=== PATIENT | male | born 1935 | race Caucasian/White ===

== ENCOUNTER 2016-06-03 20:56 | Emergency (ER) | payer OTHER ==
--- NOTE | ~2016-06-03 | EKG ---
PATIENT: JOE FERRARI UNIT #: [id number] Ventricular Rate: 71 BPM Atrial Rate: 71 BPM P-R Interval: 194 ms QRS Duration: 86 ms Q-T Interval: 390 ms QTC Calculation(Bezet): 423 ms P [place]: 41 degrees Calculated R [place]: 50 degrees Calculated T [place]: 34 degrees Diagnosis Line: Normal sinus rhythm Diagnosis Line: Normal ECG Diagnosis Line: When compared with ECG of 23-OCT-2014 14:21, Diagnosis Line: Premature atrial complexes are no longer Present Diagnosis Line: Confirmed by DARLIN HERNANDEZ MD ([id number]) on 06/05/2016 Diagnosis Line: 12:02:38 PM Diagnosis Line: Also confirmed by DARLIN HERNANDEZ MD ([id number]) on Diagnosis Line: 06/05/2016 12:02:55 PM INTERPRETING MD: MARY LORA
--- NOTE | ~2016-06-03 | EKG ---
PATIENT: JOE FERRARI UNIT #: [id number] Ventricular Rate: 71 BPM Atrial Rate: 71 BPM P-R Interval: 194 ms QRS Duration: 86 ms Q-T Interval: 390 ms QTC Calculation(Bezet): 423 ms P [place]: 41 degrees Calculated R [place]: 50 degrees Calculated T [place]: 34 degrees Diagnosis Line: Normal sinus rhythm Diagnosis Line: Normal ECG Diagnosis Line: When compared with ECG of 23-OCT-2014 14:21, Diagnosis Line: Premature atrial complexes are no longer Present Diagnosis Line: Confirmed by DARLIN HERNANDEZ MD ([id number]) on 06/05/2016 Diagnosis Line: 12:02:38 PM INTERPRETING MD: MARY LORA
[~2016-06-03 20:56] MED LIST: AMOXICILLIN PO; APRESOLINE; ATENOLOL PO; ATENOLOL-CHLORT1 TA2; ATENOLOL-CHLORT1 TA3 PO; B-COMPLEX PO; CADUET 10 MG/201 TAB PO; CARAFATE1 G PO; CATAPRES0.1 MG PO; CENTRUM SILVER PO; CLONIDINE PO; GARLIC PO; HCTZ PO; HYDRALAZINE HCL50 MG PO; HYTRIN PO; INDOMETHACIN50 MG PO; KROGER PHARMACY; LISINOPRIL20 MG PO; MAGNESIUM PO; NORVASC10 MG PO; OMEGA 3 FISH OI1 CAP PO; PLAVIX PO; PRAVACHOL80 MG PO; PROBIOTIC; PROTONIX PO; TEKTURNA; TEKTURNA300 MG PO; TENORETIC 50 TA1 TAB PO; TIMOPTIC 0.25% O5 M1 OD; TIMOPTIC2.5 ML; TYLENOL #3 PO; VIT E PO; VITAMIN C PO; WATER PILL?; WELCHOL625 MG PO; ZESTORETIC 20/21 TAB PO; ZINC SULFATE PO; ZINC50 M1 PO; ZYLOPRIM PO
[2016-06-03 21:11] LABS: BASOPHIL# 0.1 X10e3 (0-0.3); BASOPHIL% 0.9 % (0-2.5); EOSINOPHIL# 0.4 X10e3 (0-0.7); HEMATOCRIT 30.3 % (38.0-50.0); LYMPHOCYTE# 1.8 X10e3 (1.0-3.5); LYMPHOCYTE% 28.6 % (17.0-45.0); MEAN CELL VOLUME 92.8 FL (83-96); MEAN CORPUSCULAR HEMOGLOBIN 30.8 PG (28-34); MEAN CORPUSCULAR HGB CONC 33.1 g/dL (30-36); MEAN PLATELET VOLUME 8.4 FL (6.5-11.5); MONOCYTE# 0.8 X10e3 (0-1.0); MONOCYTE% 13.1 % (3.0-12.0); NEUTROPHIL# 3.2 X10e3 (1.5-7.1); NEUTROPHIL% 51.4 % (40-75); PLATELET COUNT 148 X10e3 (140-420); RED BLOOD COUNT 3.26 X10e (3.90-5.60); RED CELL DISTRIBUTION WIDTH 14.4 % (11.0-15.5); WHITE BLOOD COUNT 6.2 X10e3 (4.0-10.5)
[2016-06-03 21:13] LABS: DIFF IND NO
[2016-06-03 21:26] LABS: CALCIUM SERUM 8.5 mg/dL (8.4-10.2); CREATININE SERUM 2.7 mg/dL (0.6-1.4); GLOM FILT RATE Estimated 21.3 mL/min (>60); POTASSIUM 4.7 mmol/L (3.5-5.1)
[2016-06-03 21:26] LABS: POC - CKMB 2.9 ng/mL (0.0-7.9)
[2016-06-03 21:27] LABS: POC - TROPONIN <0.05 ng/mL (<=0.05)
[2016-06-03 21:46] LABS: URINE SOURCE CLEAN CATCH
[2016-06-03 21:48] LABS: URINE APPEARANCE CLEAR; URINE BILIRUBIN NEG (NEG); URINE BLOOD NEG (NEG); URINE COLOR YELLOW; URINE GLUCOSE NEG (NORM); URINE KETONE NEG (NEG); URINE LEUKOCYTE ESTERASE NEG (NEG); URINE NITRATE NEG (NEG); URINE PH 5.5 (5-8); URINE PROTEIN 2+ (NEG); URINE UROBILINOGEN 0.2 MG/DL (NORM)
[2016-06-03 21:49] LABS: MICRO INDICATED? NO
== END 2016-06-03 22:44 | disposition home or self-care (01) ==
LOC: SED 20:56
PROVIDERS: Emergency Medicine
DX: I12.9 Hypertensive chronic kidney disease with stage 1 through stage 4 chronic kidney disease, or unspecified chronic kidney disease (principal); N18.9 Chronic kidney disease, unspecified; D63.1 Anemia in chronic kidney disease; E78.5 Hyperlipidemia, unspecified; Z88.8 Allergy status to other drugs, medicaments and biological substances; Z79.01 Long term (current) use of anticoagulants; Z79.899 Other long term (current) drug therapy
CPT/HCPCS: 36415; 80048; 81003; 82553; 82947; 84443; 84484; 85025; 93005; 99283

== ENCOUNTER 2016-10-23 02:27 | Emergency (ER) | payer OTHER ==
[~2016-10-23] VITALS: Ht 177.8 cm; Wt 79.4 kg
[2016-10-23] MEDS ORDERED: DEXAMETHASONE4 MG PO (02:39)
[2016-10-23] MEDS ORDERED: COMBIGAN EYE DRO5 ML (02:39)
[2016-10-23] MEDS ORDERED: ZOVIRAX400 MG PO (02:39)
[2016-10-23] MEDS ORDERED: ZOFRAN8 MG PO (02:40)
[2016-10-23] MEDS ORDERED: BACTRIM 400-801 EACH PO (02:40)
[2016-10-23] MEDS ORDERED: TRAVATAN Z5 ML OU (02:40)
[2016-10-23] MEDS ORDERED: LOMOTIL 2.5-0.1 EACH PO (02:41)
[2016-10-23 03:41] LABS: URINE SOURCE CLEAN CATCH
[2016-10-23 03:43] LABS: BASOPHIL% 0.1 % (0-2.5); HEMATOCRIT 29.4 % (38.0-50.0); HEMOGLOBIN 9.6 gm/dL (13.0-16.0); LYMPHOCYTE# 1.6 X10e3 (1.0-3.5); LYMPHOCYTE% 11.8 % (17.0-45.0); MEAN CELL VOLUME 91.1 FL (83-96); MEAN CORPUSCULAR HEMOGLOBIN 29.7 PG (28-34); MEAN CORPUSCULAR HGB CONC 32.7 g/dL (30-36); MEAN PLATELET VOLUME 9.4 FL (6.5-11.5); MONOCYTE% 14.5 % (3.0-12.0); NEUTROPHIL# 10.1 X10e3 (1.5-7.1); NEUTROPHIL% 73.6 % (40-75); PLATELET COUNT 111 X10e3 (140-420); RED BLOOD COUNT 3.22 X10e (3.90-5.60); RED CELL DISTRIBUTION WIDTH 15.5 % (11.0-15.5); WHITE BLOOD COUNT 13.8 X10e3 (4.0-10.5)
[2016-10-23 03:44] LABS: URINE APPEARANCE CLEAR; URINE BILIRUBIN NEG (NEG); URINE BLOOD 1+ (NEG); URINE COLOR YELLOW; URINE GLUCOSE NEG (NORM); URINE KETONE NEG (NEG); URINE LEUKOCYTE ESTERASE NEG (NEG); URINE NITRATE NEG (NEG); URINE PH 5.5 (5-8); URINE PROTEIN 2+ (NEG); URINE UROBILINOGEN 0.2 MG/DL (NORM)
[2016-10-23 03:46] LABS: MICRO INDICATED? YES
[2016-10-23 03:46] LABS: DIFF IND NO
[2016-10-23 03:47] LABS: CULTURE INDICATED? YES; URINE BACTERIA 1+ (NEG); URINE RBC 25-50 /[HPF] (0-2); URINE SQUAMOUS EPITHELIAL CELL FEW /[HPF]; URINE WBC 0-2 /[HPF] (0-5)
[2016-10-23 03:58] LABS: BUN/CREATININE RATIO 16.66; CALCIUM SERUM 8.4 mg/dL (8.4-10.2); CREATININE SERUM 4.8 mg/dL (0.6-1.4); GLOM FILT RATE Estimated 10.6 mL/min (>60); POTASSIUM 4.8 mmol/L (3.5-5.1)
== END 2016-10-23 05:07 | disposition home or self-care (01) ==
LOC: SED 02:27
PROVIDERS: Student in an Organized Health Care Education/Training Program
DX: I12.9 Hypertensive chronic kidney disease with stage 1 through stage 4 chronic kidney disease, or unspecified chronic kidney disease (principal); N18.4 Chronic kidney disease, stage 4 (severe); R19.7 Diarrhea, unspecified; Z88.5 Allergy status to narcotic agent; Z88.8 Allergy status to other drugs, medicaments and biological substances; Z79.899 Other long term (current) drug therapy
CPT/HCPCS: 36415; 51702; 80048; 81003; 85025; 87086; 99283